=== PATIENT | female | born 1985 | race Asian ===

== ENCOUNTER → 2019-02-07 | Outpatient (CLI) | payer OTHER | LOC: ULTRA 02-01 14:00 → RAD 10:24 → ULTRA 10:24 | DX: N63.11 Unspecified lump in the right breast, upper outer quadrant (principal) ==

== ENCOUNTER → 2019-07-30 | Outpatient (CLI) | payer OTHER | LOC: ULTRA 10:26 | DX: N63.10 Unspecified lump in the right breast, unspecified quadrant (principal); N60.01 Solitary cyst of right breast ==

== ENCOUNTER → 2019-08-21 | Outpatient (CLI) | payer OTHER ==
--- NOTE | 2019-08-27 14:08 | PATH ---
[facility] [address] [place] [address] PATHOLOGY RPT PROCEDURE Name: HAZEL PENDLETON Room #: REG RAFIQ Cruz#: [id number] Admission: 08/21/19 Date of : 81 Discharge: Report #: [id number] Path Case #: [id number] [facility] Accession Number: [id number] . 01 Material submitted: . breast - RIGHT BREAST BIOPSY, 11:00. Modifiers: right, 11:00 . 02 Diagnosis: Breast "right mass 11:00 4 cm", ultrasound-guided needle biopsy: - Fibrocystic change, including dense fibrosis, usual ductal hyperplasia, sclerosing adenosis, duct ectasia, and apocrine metaplasia. - Microcalcification. - Negative for atypia and malignancy. - Please see comment. (WENDY:yasmin; 08/23/2019) S 08/27/2019 1323 Local . 02 Comment: The case is seen in co-review with Dr. Manju Faria, who concurs with the above diagnosis. (MLK:yasmin; 08/23/2019) . 02 Electronically signed: . Pravin Gomez MD, Pathologist NPI- [id number] . 01 Gross description: . The specimen is received in formalin, labeled "Hazel Pendleton, right breast 11:00 4 cm" and consists of multiple yellow-bryant fibroadipose breast needle cores measuring from 0.4 to 1.3 cm in length and 0.2 cm in diameter. They were collected at 14:[address] in formalin at 14:50. The cold ischemic time is less than 1 minute and total time in formalin is greater than 6 hours and less than 72. They are entirely submitted in A1-A3. ([facility]; 08/22/2019) JFQ/JFQ 08/22/20192020 Local . 02 Microscopic: . Immunohistochemical Stain Results (Block A2): . p63 - Strong nuclear staining of myoepithelial cells. . Calponnin - Stong cytoplasmic staining of myoepithelial cells. . Myosin - Stong cytoplasmic staining of myoepithelial cells. . 02 [place] [address] PATHOLOGY RPT PROCEDURE Name: HAZEL PENDLETON D [id number] Admission: 08/21/19 Date of : 81 Discharge: Report #: [id number] Path Case #: [id number] Pathologist provided ICD-10: N60.11, N60.21, N60.31, N60.41, N60.81 . 02 CPT . 086758, [id number], [id number] Specimen Comment: A courtesy copy of this report has been sent to [phone], [phone] Specimen Comment: [phone], Specimen Comment: Report sent to ,DR ISLAS / DR CORNELL Performed at: [address], [place] [id number] MD Main Carr MD Phone: [phone] Performed at: [address] [id number] MD Gracy Fonseca MD Phone: [phone]
== END | disposition home or self-care (01) ==
LOC: ULTRA 14:02
PROVIDERS: ATTEND Nurse Practitioner
DX: N60.11 Diffuse cystic mastopathy of right breast (principal); N60.21 Fibroadenosis of right breast; N60.41 Mammary duct ectasia of right breast; N60.81 Other benign mammary dysplasias of right breast; R92.1 Mammographic calcification found on diagnostic imaging of breast

== ENCOUNTER → 2020-03-11 | Outpatient (CLI) | payer OTHER | LOC: BC 10:08 | PROVIDERS: ATTEND Nurse Practitioner | DX: Z08 Encounter for follow-up examination after completed treatment for malignant neoplasm (principal) ==